=== PATIENT | male | born 1990 | race Caucasian/White ===

== ENCOUNTER 2016-07-18 00:44 | Emergency (ER) | payer OTHER ==
[2016-07-18] MEDS ORDERED: NS 1,000 ML IV ONE (00:54)
[2016-07-18 00:55] VITALS: TEMP 98.2; BMI 21.9
[2016-07-18] MEDS ORDERED: ONDANSETRON HCL 4 MG/2 ML VIAL IV STA (01:02)
--- NOTE | 2016-07-18 01:05 | EDPRACDOC ---
- General Information Stated Complaint: OD Time Seen by Provider: 07/18/16 00:49 Information Source: Patient Mode Of Arrival: Ambulance Home Medications: Home Medications Ketoprofen 75 mg PO TID #30 capsule 12/31/15 PEG-Electrolytes (Miralax) [Miralax] 17 gm PO DAILY #1 each 12/31/15 Allergies/Adverse Reactions: Allergies Allergy/AdvReac Type Severity Reaction Status Date / Time No Known Allergies Allergy Verified 12/31/15 04:55 - History of Present Illness Onset: 30 minutes HPI: PT PRESENTS AFTER TAKING HIGH DOSE OXYCODONE AND SMOKING MARIJUANA. GIVEN NARCAN BY EMS WITH RETURN OF APPROPRIATE MENTATION AFTERWARDS. HAS PERSISTENT TACHYCARDIA AFTER NARCAN. Ingestion: Reports: Accidental Suicidal Intent: Denies: Suicidal Intent Reason for Seeking Treatment: 911 Call Associated Signs and Symptoms: Reports: Marijuana ED Past Medical History - History Reviewed Yes Nurses notes reviewed and agree except as marked - Patient Medical History Psychological History: Denies: Depression Systemic History: Denies: Cancer - Social Medical History Smoking Status: Heavy tobacco smoker (5 or more cigarettes/day or daily pipe/ cigar) Social History: Reports: Marijuana Use, Methadone Use (OPIATE ABUSE) Lives In: Home EDM Review of Systems - Review of Systems ROS Negative Except as Marked: Yes All systems reviewed and were negative except as marked Constitutional: negative: Fever Cardiovascular: negative: Chest Pain Gastrointestinal: Nausea. negative: Pain, Vomiting - Physical Exam Constitutional: Alert, Confused (ABOUT DETAILS SURROUNDING OVERDOSE.) Oriented to: Time, Person, Place Last recorded Vital Signs: Last Vital Signs Temp 98.2 F 07/18/16 00:49 Pulse 124 H 07/18/16 00:49 Resp 20 07/18/16 00:49 BP 155/80 07/18/16 00:49 Pulse Ox 95 07/18/16 00:49 Oxygen Pulse Oxygen Saturation 95 O2 Device Oxygen Flow Rate Fraction of Inspired Oxygen ( FIO2) - HEENT Head: negative: Deformity, Laceration Eye Exam: negative: Conjunctival Injection, Pale Conjunctiva Oropharynx: negative: Membranes Dry Nose: negative: Congestion, Discharge Neck: negative: Limited ROM - Respiratory/Cardiovascular Respiratory: Normal - CTA. negative: Accessory Muscle Use, Diminished, Tachypnea Cardiovascular: Tachycardia. negative: Bradycardia - GI Auscultation: Normal Palpation: Normal Tenderness: Non tender - Musculoskeletal Extremities: Radial Pulse (PALPABLE) - Integumentary Skin: Warm, Dry. negative: Rash - Neurologic Memory Impaired: Short-term (SOME CONFUSION ABOUT DETAILS OF EVENTS SURROUNDING OVERDOSE.) Motor Function: Normal Mood Description: Anxious Thought: Coherent Perception: Normal - Re-evaluation Re-evaluation 1 Re-evaluation Time: 05:02 SPOKE WITH PATIENT ABOUT HIS ABNORMAL HEART RHYTHM AND HIS DRUG USE. HAVE ADVISED HIM TO TAKE A DAILY ASPIRIN. SUSPECT THE RAPID A.FIB IS LIKELY DUE TO DRUG USE. RATE IS NOW NORMALIZED. - Results 07/18/16 01:41 07/18/16 01:28 - EKG EKG #1 EKG Time: 01:05 -: Yes EKG interpreted by me Rate: bpm: 108 Rhythm: Afib ST: Nonsp Decision Time to Discharge: 05:03 - Departure Yes I personally saw and evaluated the patient. Disposition: Home Condition: Stable Final Diagnosis: Narcotic overdose Qualifiers: Encounter type: initial encounter Injury intent: accidental or unintentional Qualified Code(s): T40.601A - Poisoning by unspecified narcotics, accidental ( unintentional), initial encounter Atrial fibrillation Qualifiers: Atrial fibrillation type: paroxysmal Qualified Code(s): I48.0 - Paroxysmal atrial fibrillation Instructions: Adult Overdose, Atrial Fibrillation (ED) Education/Counseling Given To: Patient Education/Counseling Given Regarding: Diagnosis, Treatment, Prognosis, Follow Up Referrals: Coni Appiah MD [Primary Care Provider] - Call for Appointment Additional Instructions: PLEASE AVOID FURTHER DRUG ABUSE. IF YOU CONTINUE TO USE YOU WILL EVENTUALLY OF AN OVERDOSE. TAKE A DAILY ASPIRIN AND FOLLOW UP WITH A PCP FOR FURTHER EVALUATION OF YOUR ABNORMAL HEART RHYTHM.
[2016-07-18 01:43] LABS: BLOOD UREA NITROGEN 13 MG/DL (9-20); CALC CORRECTED 8.8 MG/DL (8.4-10.2); CALCIUM 8.6 MG/DL (8.4-10.2); CALCULATED OSMOLALITY 278 MOs/Kg (270-290); CHLORIDE 105 mEq/L (98-107); ETOH-MGDL < 10 mg/dL; GLUCOSE 181 MG/DL (70-99); SODIUM LEVEL 142 mEq/L (137-146)
[2016-07-18 01:48] LABS: AUTOMATED BASOPHIL 0.3 % (0-2); AUTOMATED EOSINOPHIL 0.7 % (0-5); AUTOMATED LYMPH 11.3 % (17-44); AUTOMATED MONOCYTE 8.3 % (3-10); AUTOMATED NEUTROPHIL 79.4 % (45-76); MPV 8.1 fL (7.4-10.4)
[2016-07-18 02:04] LABS: PARTIAL THROMB. TIME 26.6 SEC (22-35); PT-INR 1.1
[2016-07-18 05:37] VITALS: BP 120/64; PULSE 115
== END 2016-07-18 05:33 | disposition home or self-care (01) ==
LOC: ED 00:44
DX: T65.91XA Toxic effect of unspecified substance, accidental (unintentional), initial encounter (principal); I48.0 Paroxysmal atrial fibrillation
CPT/HCPCS: 36415; 80053; 80307; 84484; 85025; 85610; 85730; 93005; 96360; 99284; J2405